=== PATIENT | female | born 1965 | race Hispanic/Latino ===

== ENCOUNTER 2016-09-25 05:40 | Day surgery (SDC) | payer OTHER ==
[~2016-09-25] VITALS: Ht 157.5 cm; Wt 90.9 kg
[2016-09-25] VITALS (11 sets, daily range): BP systolic 125–144; BP diastolic 67–88; PULSE 96–118; RESP 12–23; O2SAT 93–100
[~2016-09-25 05:40] MED LIST: ACET325T51 PO; NORE1TAB57 PO
[2016-09-25] MEDS ORDERED: fentaNYL-PF 50 mCg/mL 2 mL Inj ONE (05:41)
[2016-09-25] MEDS ORDERED: Phenylephrine/NS 100 mCg/mL 10 mL Syringe IVPUSH ONE (05:41)
[2016-09-25] MEDS ORDERED: Propofol 10,000 mCg/mL 20 mL Inj ONE (05:41)
[2016-09-25] MEDS ORDERED: Succinylcholine Chloride 20 mg/mL 5 mL Inj ONE (05:41)
[2016-09-25] MEDS ORDERED: Ondansetron 2 mg/mL 2 mL Inj ONE (05:41)
[2016-09-25] MEDS ORDERED: Dexamethasone 4 mg/mL Inj ONE (05:41)
[2016-09-25] MEDS ORDERED: Lidocaine PF 1% 30 mL Inj ONE (05:41)
[2016-09-25] MEDS: Lactated Ringer's 1,000 ML IV SCH ×3 (05:59→10:46)
--- NOTE | 2016-09-25 07:15 | PCM.HPANE ---
Patient Data Date of Service: Sep 25, 2016 Surgeon Admitting Provider: Attending Provider:Reggie Sanchez MD Primary Care Physician:Gayla Che MD Other Provider:Keely Linder Anesthesia Reason for Visit Right Thyroid Nodule Ht/WT & BMI Height (Feet): 5 Height (Inches): 2.00 Weight (Kilograms): 90.9 Body Mass Index 36.00 Allergies Coded Allergies: No Known Allergies (Verified Allergy, Severe, 12/18/10) Past Anesthesia History Anesthesia History: Denies:: Abnormal Airway, Anesthesia Reactions, Difficult Intubation, Fam Anesthesia Reaction Diabetes History Hx Diabetes?: Yes MRSA MRSA: No Medications Hypertension Medication: No Home Meds Incl Beta Staci: No Reported Medications Norethindrone-Ethinyl Estrad (Necon)1 Each Tablet1 Each PO DAILY 09/23/16 Acetaminophen 325 Mg Tablet1-2 Tab PO Q6H PRN For Pain Ref 0 09/23/16 Discontinued Reported Medications No Historical Medication Ea 12/18/10 History History of ENT Problems?: No HEENT History: Denies:: Abnormal Airway Cataracts Difficult Intubation Dysphagia Glaucoma Hearing Problem Sinus Problem TMJ Hx of Heart Problems?: No Cardiovascular History: Denies:: AICD Abdominal Aortic Aneurism Atrial Fibrillation Chest Pain Congestive Heart Failure Coronary Artery Disease Edema Heart Murmur Hypertension Irregular Heartbeat Pacemaker Hx of Respiratory Problem?: No Respiratory History: Positive for:: Tuberculosis (many years ago tested pos, had 6 week cycle of meds,) Denies:: Asthma COPD Emphysema Oxygen Administration Pneumonia Use of C-PAP Machine Use of Inhalers / NEBS Hx Neurologic Problems?: No Neurological History: Denies:: CVA Headaches Multiple Sclerosis Parkinson's Disease Seizures TIA Hx of GI Problems?: Yes Gastrointestinal History: Positive for:: Gall Bladder Disease (removed) Denies:: Gastroesphageal Reflux Gastrointestinal Bleeding Heartburn Hepatitis Hiatal Hernia Liver Disease Rectal Bleeding Hx of Problems?: No Female Hx: Denies:: Currently Problems with Breasts? Skin History: Denies:: History Skin Disorders? Pressure Ulcers Hx Musculoskeletal Problems?: No Musculoskeletal History: Denies:: Back Injury Fibromyalgia Joint Replacement Musculoskeletal Trauma Myasthenia Gravis Osteoarthritis Rheumatoid Arthritis Hx of Psycho/Social Problems?: No Psycho Social History: Denies:: Anxiety Hx Depression Hx Surgeries?: Yes (ovary removed, simone) Hx Any Other Health Problems?: Yes Other History: Positive for:: Thyroid Disease (current admission problem) Denies:: Cancer Endocrine Disease Hospitalization History Blood Transfusions: Positive for:: Accept Blood Products? Denies:: Blood Transfusions Hx Diabetes: Yes Hx Alcohol Use: NoHx Substance Use: NoHave You Smoked inLast 12 mo: No Stop/Bang S-Snoring: Do You Snore Loudly: No T-Tired: feel tired, fatigued: Yes O-Obsered: Observed not breath: No P-Blood Pressure: treated: No B- Body Mass Index > 35 kg/m2: No A- Age over 50: No N- Neck Large Circumference: No G- Gender Male: No HECTOR Total Score: 1 HECTOR Risk Assessment: Low Risk, <3 Yes Risk Assessment Category Category 1A: Patient has history of documented sleep apnea, and HAS NOT received any narcotic, sedative or anesthesia administration during this stay. Category 1B: Patient has history of documented sleep apnea, and HAS received any narcotic , sedative or anesthesia administration during this stay Category 2: Patient has SUSPECTED Obstructive Sleep Apnea, and HAS received any narcotic , sedative or anesthesia administration during this stay. Category 3: Patient has SUSPECTED Obstructive Sleep Apnea and HAS NOT received narcotic, sedative or anesthesia administration during this stay. Category 4: Outpatient in Procedural Areas with known sleep apnea or who screen positive for High Risk via the STOP/BANG questionnaire. Exam Exam Vital Signs Vital Signs Date Time Temp Pulse Resp B/P Pulse Ox O2 Delivery O2 Flow Rate FiO2 09/25/16 06:00 36.9 96 16 134/88 96 Room Air General Appearance: Alert, Oriented X3, Cooperative, No Acute Distress HEENT/AIRWAY: MP 2, Neck Movement (normal), Mouth Opening (normal) Lungs: Clear to Auscultation, Normal Air Movement Heart: Exam Unremarkable, Regular Rate/Rhythm, No Murmurs/Rubs/Gallops Meds/Labs/Diagnostics Admission Meds Current Medications Lactated Ringer's (Lr) 1,000 ml @ 120 mls/hr Q8H20M IV Last administered on t 05:59; Start 09/25/16 at 05:00; Stop 09/25/16 at 13:19 Plan Impression Patient chart reviewed, patient interviewed and anesthestic plan with risks, benefits, and alternatives discussed, and informed consent obtained. NPO Status: 1800 09/24 ASA Physical Status: ASA2 Mod Systemic Disease Anesthetic Plan: GA Bene/Risks/Altern/Consents: Yes HP Complete Prior to Induction: Yes Yakov López MD Sep 25, 2016 07:15
[2016-09-25] MEDS ORDERED: Lactated Ringer's 1,000 ML IV SCH (08:01)
[2016-09-25] MEDS ORDERED: Lactated Ringer's 500 ML IV PRN (08:01)
[2016-09-25] MEDS ORDERED: Ondansetron 2 mg/mL 2 mL Inj IVPUSH PRN (08:05)
[2016-09-25] MEDS ORDERED: fentaNYL-PF 50 mCg/mL 2 mL Inj IVPUSH PRN (08:05)
[2016-09-25] MEDS ORDERED: hydrALAZINE 20 mg/mL Inj IVPUSH PRN (08:05)
[2016-09-25] MEDS ORDERED: Labetalol 5 mg/mL 4 mL Inj IV PRN (08:05)
[2016-09-25] MEDS ORDERED: EPHEDrine Sulfate 50 mg/mL Inj IVPUSH PRN (08:05)
[2016-09-25] MEDS ORDERED: Atropine 0.4 mg/mL Inj IVPUSH PRN (08:05)
[2016-09-25] MEDS ORDERED: Phenylephrine 10,000 mCg/mL Inj IVPUSH PRN (08:05)
[2016-09-25] MEDS ORDERED: Bupivacaine-MPF 0.25%/EPI 30 mL Inj INJ ONE (08:10)
[2016-09-25] MEDS: HYDROmorphone 1 mg/mL Inj IVPUSH PRN ×2 (10:09→10:36)
[2016-09-25] MEDS ORDERED: oxyCODONE-Acetamin 5-325 mg Tablet PO PRN (10:10)
[2016-09-25] MEDS: MetoCLOpramide 5 mg/mL 2 mL Inj IVPUSH PRN ×2 (10:39→10:55)
--- NOTE | 2016-09-25 10:43 | OP ---
[address] [address] OPERATIVE REPORT PATIENT: TON CARRION : 1965 MR#: [id number] ADMIT: 09/25/2016 JOB ID: [id number] DATE OF SURGERY: 09/25/2016 ANESTHESIA: General. PREOPERATIVE DIAGNOSIS(ES): Right thyroid nodule with molecular testing suspicious for malignancy. POSTOPERATIVE DIAGNOSIS(ES): Right thyroid nodule with molecular testing suspicious for malignancy. OPERATIVE PROCEDURE: Right thyroid lobectomy and isthmusectomy. SURGEON: Dr. Reggie Sanchez. COORDINATOR OF EVALUATION: Estefany Orellana MD (the assistant manager pt was required for the safe and timely completion of the case) as well as MARIN Perry. COMPLICATIONS: None. ESTIMATED BLOOD LOSS: Minimal. CONDITION: Satisfactory. SPECIMEN: Right thyroid lobe. FINDINGS: The right thyroid and isthmus had a large cystic lesion as well as a moderate-sized nodule. The right recurrent laryngeal nerve was identified and preserved. INDICATIONS/SIGNIFICANT HISTORY: The patient is a 50-year-old female who noted a right thyroid nodule herself. This prompted a visit to the Urgent Care [facility], where an ultrasound was ordered and eventually obtained demonstrating a 2.7 cm within the mid right thyroid as well as a large cyst. FNA of the nodule with molecular testing was suspicious for malignancy. She was, therefore, referred for surgery. OPERATIVE TECHNIQUE: The patient was taken into the operating room and placed in the supine position. General anesthesia was administered and the neck was prepped and draped in the standard surgical fashion. A procedural pause was performed. A 5 cm transverse cervical incision was made in the natural skin crease. Dissection was carried down through the skin and subcutaneous tissue. Local anesthetic had been injected. The superior and inferior subplatysmal flaps were then raised. The midline fascia was then incised and the right strap muscles sequentially elevated. The sternal thyroid was a little adherent to the cyst so the most medial aspect of this was incised using the energy device. After mobilizing the strap muscles, I mobilized the mid aspect of the thyroid with blunt dissection. I then turned my attention to the isthmus. Just medial to the large cyst, a retro thyroid tunnel was created over the trachea. The thyroid was then transected using the LigaSure Precise. I then turned my attention to the superior pole. This was dissected and the superior pole vessels sequentially taken using the LigaSure. In a similar way I then turned my attention to the inferior pole. I then began to carefully dissect in the posterior mid aspect of the thyroid. After careful search, the recurrent laryngeal nerve was identified and its course delineated. Then I continued to further dissect the thyroid taking care to stay clear of the nerve. The superior parathyroid was identified and preserved. A small amount of the ligament of Alex was left in situ to help avoid getting too close to the nerve. The specimen was then handed off. The surgical bed was inspected and found to be hemostatic. Valsalva maneuver was performed and the surgical bed remained hemostatic. The strap muscles were then closed with running 3-0 Vicryl. The platysma was closed with interrupted 3-0 Vicryl. Skin was closed using 4-0 Monocryl. Dermabond was applied. The entire procedure was well tolerated without complication. WALI
--- NOTE | 2016-09-25 11:20 | PCM.ANEP1 ---
Post Anesthesia Phase 1 PACU Phase 1 Assessment Date of Service: Sep 25, 2016 Vital Signs Vital Signs Date Time Temp Pulse Resp B/P Pulse Ox O2 Delivery O2 Flow Rate FiO2 09/25/16 11:13 106 143/72 93 Room Air 09/25/16 11:00 110 19 134/70 94 Room Air 09/25/16 10:45 116 12 144/75 94 Room Air 09/25/16 10:30 116 21 144/85 96 Room Air 09/25/16 10:15 115 23 129/71 98 Simple Mask 10 09/25/16 10:10 36.5 116 20 144/75 100 Simple Mask 10 09/25/16 10:05 118 21 143/88 100 Simple Mask 10 09/25/16 10:00 118 21 135/78 100 Simple Mask 10 09/25/16 09:55 36.0 128/67 09/25/16 06:00 36.9 96 16 134/88 96 Room Air Anesthetic Administered: GA Level of Alertness: Sleepy, easy to arouse DISLA's with Equal Strength: Yes Pain: No Nausea or Vomiting: No Oxygen Delivery: Simple Mask Lungs: Clear to Auscultation, Normal Air Movement Yakov López MD Sep 25, 2016 11:19
--- NOTE | 2016-09-25 12:10 | PCM.ANEP2 ---
Post Anesthesia Evaluation ASA/CMS Post Anesthesia Date of Service: Sep 25, 2016 VS in Patient's Normal Range?: Yes Resp Stable; Airway Patent?: Yes CV Function & Hydration Stable: Yes Mental Status Recovered?: Yes Pain control Satisfactory?: Yes N/V Control Satisfactory?: Yes Yakov López MD Sep 25, 2016 12:10
--- NOTE | 2016-09-29 17:11 | PATH ---
SURGICAL PATHOLOGY Attending Physician:Reggie Sanchez MD CASE STATUS: Signed Out PATIENT NAME: TON CARRION PID: [id number] : 1965 DATE COLLECTED:09/25/2016 17:10 SPECIMEN: Thyroid, Lobectomy CLINICAL HISTORY: RIGHT THYROID NODULE 1). 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 3 parathyroid glands present. No evidence of malignancy. ICD10 code E04.1 D34 GROSS DESCRIPTION: The specimen is received in formalin, labeled with the patient's name, sublabeled as right thyroid lobe and consists of a thyroid gland right lobe (11.7 g, 1.8 cm in AP, 4.4 cm SI, 4.8 cm ML). The capsule is red-brown smooth and shiny. The parenchyma is red-brown and contains a gallagher beth semitranslucent well-circumscribed nodule (2.2 x 1.1 x 1.1 cm) located 0.9 cm from the superior pole, less than 0.1 cm from the anterior and 0.2 cm from the posterior capsular surfaces. Also identified 0.5 cm medial to the nodule is a bright white the cyst (2.0 x 1.6 x 1.3 cm) containing brown semi-translucent firm rubbery friable material. The lining is smooth, shiny and flat with no excrescences identified. The wall is less than 0.1 cm thick. The cyst is less than 0.1 cm from the anterior and posterior capsular surfaces. The parenchyma involving the inferior pole is semitranslucent with a glassy nodular appearance. Ink code: purple-anterior; yellow-posterior; green-medial. Section code: (A) superior pole, perpendicularly sectioned, entirely submitted; (B-F) right lobe, serially sectioned and submitted SI, community representative; (G) inferior pole, perpendicular sections, entirely submitted. 09/27/16 JM MICRO DESCRIPTION: See diagnosis. As part of routine clinical quality rn, Dr. Fernando also reviewed selected slides and agrees with the diagnosis. ICD-9 CODES: CPT CODES: 1: 02055 Electronically Signed Out Melissa Ballesteros MD [facility] [address] [place] [address], [place] [id number] Technical component performed at [facility], [address], [place], [address]
== END 2016-09-25 23:59 | disposition home or self-care (01) ==
LOC: SAS 05:40
PROVIDERS: ATTEND General Practice
DX: D34 Benign neoplasm of thyroid gland (principal); E04.1 Nontoxic single thyroid nodule
CPT/HCPCS: 60220; 88307; J0330; J1100; J1170; J2250; J2370; J2405; J2765; J3010; J7120